=== PATIENT | female | born 1985 | race Caucasian/White ===

== ENCOUNTER 2021-01-25 21:00 | Emergency (ER) | payer OTHER ==
[~2021-01-25] VITALS: Ht 167.6 cm; Wt 84.1 kg
[~2021-01-25 21:00] MED LIST: CEFTIN 250250 MG/TAB PO; IBU600 MG PO; NUVARING1 ICR VG; PYRIDIUM200 M1 PO; WELLBUTRIN SR150 M1 PO; XANAX .25M0.25 MG/TA PO
[2021-01-25 23:15] VITALS: BP 126/78; PULSE 76
== END 2021-01-25 23:15 | disposition home or self-care (01) ==
LOC: COL.ER 21:00
DX: M54.42 Lumbago with sciatica, left side (principal); Z79.1 Long term (current) use of non-steroidal anti-inflammatories (NSAID)
CPT/HCPCS: J1885; J2360

== ENCOUNTER → 2023-03-11 | Outpatient (CLI) | payer OTHER ==
[~2023-03-11] MED LIST changes: +JUNEL 1/20 20 M1 TAB; +NORCO 325 MG-51 TAB PO; +OZEMPIC SQ; +[UNRECOGNIZED DRUG - OTHER] SQ
== END ==
LOC: COL.RAD 08:34
DX: R10.2 Pelvic and perineal pain (principal)